=== PATIENT | male | born 1965 ===

== ENCOUNTER 2018-03-14 06:09 | Day surgery (SDC) | payer MEDICAID ==
[2018-03-14] VITALS (12 sets, daily range): BP systolic 98–139; BP diastolic 70–103; PULSE 50–68; TEMP 97.4
[~2018-03-14] VITALS: Ht 190.7 cm; Wt 96.4 kg
[2018-03-14 06:50] LABS: HEMATOCRIT 46.6 % (42.0-52.0); HEMOGLOBIN 15.3 g/dl (13.5-18.0); MEAN CELL VOLUME 97 fl (80.0-100.0); MEAN CORPUSCULAR HEMOGLOBIN 32 pg (27.0-31.0); MEAN CORPUSCULAR HGB CONC 33 g/dl (33.0-37.0); MEAN PLATELET VOLUME 10.5 fl (7.4-10.4); PLATELET COUNT 180 K/mm3 (130-400); RED BLOOD COUNT 4.83 M/mm3 (4.20-5.60); REDCELL DISTRIBUTION WIDTH-CV 13.8 % (11.5-14.5)
[2018-03-14 06:57] LABS: PROTHROMBIN TIME 11.3 SECONDS (9.7-12.8)
[2018-03-14 07:02] LABS: CREATININE, serum 0.76 mg/dL (0.66-1.25); POTASSIUM 3.8 mmol/L (3.4-5.0)
[2018-03-14] MEDS ORDERED: LIPITOR 40MG TA40 MG PO (07:50)
[2018-03-14] MEDS ORDERED: XARELTO20 MG PO (07:50)
[2018-03-14] MEDS ORDERED: NITROSTAT0.4 MG/TAB SL (07:51)
[2018-03-14] MEDS ORDERED: LOPRESSOR 550 MG/TAB PO (07:51)
[2018-03-14] MEDS ORDERED: TYLENOL 500MG500 MG PO (07:52)
[2018-03-14] MEDS ORDERED: ASPIRIN 81M81 MG/TA2 PO (08:03)
== END 2018-03-14 15:41 | disposition home or self-care (01) ==
LOC: COL.CAR 06:09
PROVIDERS: Internal Medicine Cardiovascular Disease
DX: I25.10 Atherosclerotic heart disease of native coronary artery without angina pectoris (principal); R94.39 Abnormal result of other cardiovascular function study; Z86.711 Personal history of pulmonary embolism; Z86.718 Personal history of other venous thrombosis and embolism; Z87.891 Personal history of nicotine dependence; Z95.828 Presence of other vascular implants and grafts
CPT/HCPCS: C1769; J1644; J2250; J3010; Q9967